=== PATIENT | female | born 2000 | race Caucasian/White ===

== ENCOUNTER 2024-04-21 13:22 | Outpatient (AMB) | payer MEDICARE, MEDICAID, SELFPAY ==
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
[2024-04-21 13:27] VITALS: BP 160/102; BMI 45.8
== END 2024-04-21 14:04 | disposition home or self-care (01) ==
PROVIDERS: PCP Family Medicine; Visit Provider Psychiatry & Neurology Neurology
DX: G25.69 Other tics of organic origin (principal); R06.83 Snoring; G47.10 Hypersomnia, unspecified
CPT/HCPCS: 99204; G2211

== ENCOUNTER → 2024-04-21 13:22 | Outpatient (BNVA) | payer MEDICAID, MEDICARE, SELFPAY | PROVIDERS: PCP Family Medicine; Visit Provider Psychiatry & Neurology Neurology | DX: G25.69 Other tics of organic origin (principal); G47.10 Hypersomnia, unspecified; R06.83 Snoring | CPT/HCPCS: 99202 ==

== ENCOUNTER 2024-05-07 19:24 | Outpatient (REF) | payer MEDICARE, MEDICAID, SELFPAY ==
--- NOTE | ~2024-05-07 | MR_ITS ---
EXAMINATION: MR CERVICAL SPINE WITHOUT IV CONTRAST History: M54.2 - Cervicalgia Technique: Sagittal T1, T2 and STIR, bilateral sagittal oblique T2, and axial T1, T2 and gradient echo images of the cervical spine were obtained per departmental protocol. Comparison: None available. Findings: The vertebral bodies maintain normal height and marrow signal intensity. There is straightening of the normal cervical lordosis. There is no subluxation. The intervertebral discs maintain normal height and hydration. At C2-3, there is no evidence of disc herniation, central spinal stenosis, or neural foraminal narrowing. At C3-4, there is no evidence of disc herniation, central spinal stenosis, or neural foraminal narrowing. At C4-5, there is no evidence of disc herniation, central spinal stenosis, or neural foraminal narrowing. At C5-6, there is no evidence of disc herniation, central spinal stenosis, or neural foraminal narrowing. At C6-7, there is no evidence of disc herniation, central spinal stenosis, or neural foraminal narrowing. At C7-T1, there is no evidence of disc herniation, central spinal stenosis, or neural foraminal narrowing. The spinal cord demonstrates normal signal intensity. The visualized paraspinal soft tissues are unremarkable. MR/MR cervical spine wo con Impression: Straightening of the normal cervical lordosis. Otherwise unremarkable MRI of the cervical spine. Electronically signed by: Fortino Agosto MD 05/09/2024 09:19 AM RANJAN
--- NOTE | ~2024-05-07 | MR_ITS ---
EXAMINATION: MR BRAIN WITHOUT IV CONTRAST HISTORY: G25.69 - Other tics of organic origin TECHNIQUE: Sagittal T1, and axial T1, FLAIR, T2, gradient echo, and diffusion weighted MR images of the brain were obtained. COMPARISON: None FINDINGS: The brain parenchyma is unremarkable, demonstrating normal deal/white differentiation. No foci of abnormal signal intensity are identified. The ventricular system is normal in size and configuration. There is no mass effect or midline shift. No intra or extra-axial fluid collections are identified. There are no foci of restricted diffusion. Normal vascular flow voids are noted in the basilar and carotid arteries. The visualized paranasal sinuses are clear. MR/MR head/brain wo con IMPRESSION: Unremarkable MRI of the brain without contrast. Electronically signed by: Fortino Agosto MD 05/09/2024 09:01 AM RANJAN
== END 2024-05-07 19:25 | disposition home or self-care (01) ==
LOC: HO.MRI 19:24
PROVIDERS: PCP Family Medicine; Visit Provider Psychiatry & Neurology Neurology
DX: M54.2 Cervicalgia (principal); G25.69 Other tics of organic origin
CPT/HCPCS: 70551; 72141

== ENCOUNTER → 2024-05-07 19:40 | Outpatient (BNV) | payer MEDICARE, MEDICAID, SELFPAY | PROVIDERS: PCP Family Medicine; Visit Provider Radiology Diagnostic Radiology | DX: M54.2 Cervicalgia (principal); R51.9 Headache, unspecified | CPT/HCPCS: 70551; 72141 ==

== ENCOUNTER → 2024-06-07 09:01 | Outpatient (REF) | payer MEDICARE, MEDICAID, SELFPAY | LOC: HO.SL 09:01 | PROVIDERS: PCP Family Medicine; Visit Provider Psychiatry & Neurology Neurology | DX: R06.83 Snoring (principal); G47.10 Hypersomnia, unspecified | CPT/HCPCS: 95806 ==

== ENCOUNTER → 2024-06-07 09:11 | Outpatient (BNV) | payer MEDICARE, MEDICAID, SELFPAY | PROVIDERS: PCP Family Medicine; Visit Provider Psychiatry & Neurology Neurology | DX: G47.33 Obstructive sleep apnea (adult) (pediatric) (principal) | CPT/HCPCS: 95806 ==

== ENCOUNTER 2024-08-02 08:01 | Outpatient (AMB) | payer MEDICARE, MEDICAID, SELFPAY ==
--- NOTE | 2024-08-02 08:09 | MHC.OFFVIS ---
Vital Signs 08/02/24 08:10 Height 5 ft 9 in Weight 305 lb BMI 45.0 BP 130/80 Blood Pressure Location Rt brachial Position Sitting Pulse 102 H Pulse Source Pulse Oximeter Pulse Oximetry (%) 96 Oxygen Delivery Method Room Air Intake Visit Reasons: follow up Tics Intake Note: Patient presents follow up Tics. MRI's/HST in chart. Accompanied by: Mother Allergies No Known Allergies Allergy (Verified 08/02/24 08:12) HPI Comments Details: 24y/o female comes for evaluation of sleep difficulties. HST completed 07/07/2024 significant for mild sleep apnea AHI was 5 and Oxygen Nadirs to 79%. She has h/o ADHD and PTSD, with anxiety and thinks these movements are related to emotional stress. she is accompanied by her mother who helps with the history. She was diagnosed with Christopher Danlos. She started having abnormal movements about 10 years ago, anxiety stress related. They worsened in 2020 during traumatic event, She describes the movements as TICS. She has motor TICS- head jerking she has neck pain and tightness Vocal TICS- squeaking noise.Verbal TICS- swears. She can suppress the movements transiently however unable to when in stressful situations such as testing or mom's health issues and falls, she tends to hyperfixate on how to remedy the situation. Seldomnly hits herself in her head. She discontinued Stratera due to HTN and it also increase the frequency of her movements, she sees Dr. Alford at [facility]. Since she started therapy on CPAP she says she is sleeping better remembers her dream. Denies headaches, she has photophobia and phonophobia with sensitivity to loud noises, can trigger vomiting. She had 2 episodes of ocular migraines and is concerned about abdominal migraines occurring occasionally. Stratera was discontinue due to htn, now she is on Aderrall, 10mg and she is back to her normal baseline of frequency with vocal and verbal tics having a couple per hour. She is attending [employer], has accomodations for her coursework. She notices sleep is better, since starting CPAP therapy, she is remembering her dreams, with improved hypersomnia, she no longer sleeps in to noon. Her diet is okay, food prep tends be challenging due to her IBS / IBD symptoms, she eats more bland foods, as he feels more constipation> than diarrhea symptoms. She trying to eat better, since starting adderall she feels better than when she was on antidepressants alone. She takes Crustin with Bromeline, magnesium, B12 and psylium husk for her gut health and is followed by and [facility] specialist. Food prep is challenging, plain bland foods, due to IBS she gets more constipation and diarrhea. Baclofen and tramadol as needed for pars defect goes to the gym and PT q 2 weeks, where she works with Yumi May at [employer]. She cleans her mask daily, changes her filters and hoses as needed and requests supplies from [facility], has the kathy on her phone to monitor her sleep episodes. [facility] Medical History Hypersomnia Snoring Tics of organic origin POTS (postural orthostatic tachycardia syndrome) Hereditary alpha tryptasemia PTSD (post-traumatic stress disorder) Polycystic bilateral ovaries Christopher-Danlos syndrome Depression ADHD Anxiety Family History Mother HTN (hypertension) Father Mental health problem Social History Alcohol intake: never Patient Tobacco Use Status: Never used Tobacco Physical Exam Vital Signs: Last Vital Signs Pulse 102 H 08/02/24 08:10 BP 130/80 08/02/24 08:10 Pulse Ox 96 08/02/24 08:10 Oxygen Delivery Method Room Air 08/02/24 08:10 BMI result Body Mass Index 45.0 Const General: cooperative, healthy appearing and comfortable Nutritional Appearance: obese Orientation/consciousness: patient oriented x3 Eyes Pupils: Equal, round and reactive pupils present Neuro Other: No TICS or any abnormal movements General: patient oriented x3, gait normal, tone normal, moves all extremities and no focal motor deficits Cranial nerves: Yes Facial sensation intact/muscles of mastication intact, Yes Equal, round and reactive pupils present, Yes Bilaterally intact EOM present, Yes Nystagmus not present, Yes Normal facial strength present and Yes Midline tongue present Cognition (Neuro): normal cognition Gait exam (Neuro): Normal gait present Motor exam (neuro): 5/5 motor strength present throughout and Normal motor muscle tone present throughout Deep tendon reflexes (DTR's): Right triceps reflex intensity grade: 2+, Left triceps reflex intensity grade: 2+, Rt Biceps (C5, C6): 2+, Left biceps reflex intensity grade: 2+, Right brachioradialis reflex intensity grade: 2+, Left brachioradialis reflex intensity grade: 2+, Right patellar reflex intensity grade: 3+ and Left patellar reflex intensity grade: 3+ Coordination: [id number] test normal Results Reviewed Results Reviewed: HST 07/07/2024 AHI was 5 and O2 Shahid to 79%, significant for mild sleep apnea. No data for compliance. Impression: Straightening of the normal cervical lordosis. Otherwise unremarkable MRI of the cervical spine. Apr 2024 IMPRESSION: Unremarkable MRI of the brain without contrast. Assessment & Plan Assessment & Plan (1) Tics of organic origin: Comment: motor and vocal likley undiagnosed Tourettes Code(s): G25.69 - Other tics of organic origin Category: Medical (2) Snoring: Code(s): R06.83 - Snoring Category: Medical (3) Hypersomnia: Code(s): G47.10 - Hypersomnia, unspecified Category: Medical (4) Excessive daytime sleepiness: Code(s): G47.19 - Other hypersomnia Category: Medical (5) Fatigue due to sleep pattern disturbance: Code(s): R53.83 - Other fatigue; G47.9 - Sleep disorder, unspecified Category: Medical (6) RUDY (obstructive sleep apnea): Code(s): G47.33 - Obstructive sleep apnea (adult) (pediatric) Category: Medical Plan HST 07/07/2024 AHI was 5 and O2 Shahid to 79%, significant for mild sleep apnea. Fatigue and excessive daytime sleepiness, she started using CPAP 2 weeks ago will continue to monitor therapy. Vocal TICS are better 2/hour now back to her baseline stopped Atomoxetine 40mg PO (stratera) d/t htn. Continue with Aderall 10mg daily as vocal tics are better managed per Dr. Abraham from [employer]. Reviewed MRI brain MRI C spine today with patient straightening of c-spine, otherwise normal MRI and C-spine. Anxiety and Depression improved with Buproprion 450mg PO QAM and Escitalopram 20 mg PO daily. Continue Magnesium 500mg PO at bedtime. Continue Visits with PT as directed and tolerated due to Christopher Danlos. Patient Instructions: Sleep Hygiene provided: set a scheduled bedtime and wake time to help regulate the circadian rhythm and balance the release of pituitary hormones. Sleep in a dark room, temperatures below 68 degrees, and no devices n bed. Limit caffeinated products 6 hours prior to bed, and limit fluids 2-4 hours prior to bed. Gentle night yoga, diffusing essential oils, and playing soft music can be relaxing. We discussed CBTI today to manage stress with strategies to help her with episode of mom's falls. We discussed diet, food, and exercise as tolerable. If she notices diarrhea or constipation IBS/IBD symptoms to adjust meds PRN. We also discussed continuation of Aderall 10mg PO daily as this has helped with Vocal tics. Coding Level of Care Code Est Pt Level 4 (60079) Complex EM visit Add On G2211 Diagnoses Tics of organic origin G25.69 Snoring R06.83 Hypersomnia G47.10 Excessive daytime sleepiness G47.19 Fatigue due to sleep pattern disturbance R53.83; G47.9 RUDY (obstructive sleep apnea) G47.33 Time Spent (min) 30
[2024-08-02 08:10] VITALS: BP 130/80; PULSE 102; O2SAT 96; BMI 45.0
== END 2024-08-02 08:57 | disposition home or self-care (01) ==
LOC: HO.HSMS 08:02
PROVIDERS: PCP Family Medicine; Visit Provider Physician Assistant Medical
DX: G25.69 Other tics of organic origin (principal); R06.83 Snoring; G47.10 Hypersomnia, unspecified; G47.19 Other hypersomnia; R53.83 Other fatigue; G47.9 Sleep disorder, unspecified; G47.33 Obstructive sleep apnea (adult) (pediatric)
CPT/HCPCS: 99214; G2211

== ENCOUNTER → 2024-08-02 08:01 | Outpatient (BNVA) | payer MEDICARE, SELFPAY | PROVIDERS: PCP Family Medicine; Visit Provider Physician Assistant Medical | DX: G25.69 Other tics of organic origin (principal); R06.83 Snoring; G47.10 Hypersomnia, unspecified; G47.19 Other hypersomnia; G47.9 Sleep disorder, unspecified; G47.33 Obstructive sleep apnea (adult) (pediatric); R53.83 Other fatigue | CPT/HCPCS: 99212 ==

== ENCOUNTER 2024-12-19 14:56 | Outpatient (AMB) | payer MEDICARE, MEDICAID, SELFPAY ==
--- NOTE | 2024-12-19 14:58 | A.OFFVIS_ITS ---
Vital Signs 12/19/24 14:59 Height 5 ft 9 in Weight 307 lb 8 oz BMI 45.4 BP 128/82 Blood Pressure Location Rt brachial Position Sitting Pulse 94 Pulse Source Pulse Oximeter Pulse Oximetry (%) 97 Oxygen Delivery Method Room Air Intake Visit Reasons: 3 month follow up Intake Note: Follow up Excessive daytime sleepiness and Hypersomnia last seen Shantanu Registered Nurse Required: No Accompanied by: Mother Allergies No Known Allergies Allergy (Verified 12/19/24 14:58) Medication List - Last Reconciled 12/19/24 by Yessy Chatman MD baclofen 5 mg PO TID PRN bupropion HCl XL 450 mg PO QAM clotrimazole-betamethasone 1-0.05 % appl topical dicyclomine 20 mg PO BID-TID epinephrine 0.3 mL IM ONCE PRN escitalopram oxalate 20 mg PO QAM famotidine 40 mg PO BID levocetirizine 10 mg PO BID norethindrone-e.estradiol-iron 1.5 mg-30 mcg ()/75 mg (7) ( FE 1.5/30 (28)) 1 tab PO DAILY omeprazole 20 mg PO QAM oxycodone 5 - 10 mg PO Q OTHER DAY pregabalin 100 mg PO BID HPI Comments Details: 24y/o female comes for F/u of abnormal movements.TICs are stable . Adderal helps with her attention and she thinks taking it regularly has helped her TICS. Her mood is stable .she also sees a panel machine setter for her back pain and sees a psychiatrist - for mood and ADHD treatment. she is using CPAP regularly . History from initial visit- 04/2024 she has h/o ADHD and PTSD, anxiety and thinks these movements are related to anxiety. she is accompanied by her mother who helps with the history. she started having abnormal movements about 10 years ago , anxiety stress related. They worsened in 2020 during traumatic event.she describes the movements as TICS. she has motor TICS- head jerking she has neck pain and tightness Vocal TICS- squeaking noise Verbal TICS- swears She can suppress the movements transiently Frequently hits herself in her head.SHe was started by atomoxetine for ADHD - increased dose has increased her abnormal movements and BP> she sees a provider at [facility] . 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 HST completed 07/07/2024 significant for mild sleep apnea AHI was 5 and Oxygen N adirs to 79%. [facility] Medical History Hypersomnia Snoring Tics of organic origin POTS (postural orthostatic tachycardia syndrome) Hereditary alpha tryptasemia PTSD (post-traumatic stress disorder) Polycystic bilateral ovaries Christopher-Danlos syndrome Depression ADHD Anxiety Family History Mother HTN (hypertension) Father Mental health problem Social History Alcohol intake: never Patient Tobacco Use Status: Never used Tobacco Physical Exam Vital Signs: Last Vital Signs Pulse 94 12/19/24 14:59 BP 128/82 12/19/24 14:59 Pulse Ox 97 12/19/24 14:59 Oxygen Delivery Method Room Air 12/19/24 14:59 BMI result Body Mass Index 45.4 Const General: cooperative, healthy appearing and comfortable Nutritional Appearance: obese Orientation/consciousness: patient oriented x3 Eyes Pupils: Equal, round and reactive pupils present Neuro Other: No TICS or any abnormal movements General: patient oriented x3, gait normal, tone normal, moves all extremities and no focal motor deficits Cranial nerves: Yes Facial sensation intact/muscles of mastication intact, Yes Equal, round and reactive pupils present, Yes Bilaterally intact EOM present, Yes Nystagmus not present, Yes Normal facial strength present and Yes Midline tongue present Cognition (Neuro): normal cognition Gait exam (Neuro): Normal gait present Motor exam (neuro): 5/5 motor strength present throughout and Normal motor muscle tone present throughout Coordination: [id number] test normal Assessment & Plan Assessment & Plan (1) Tics of organic origin: Comment: motor and vocal likley undiagnosed Tourettes Code(s): G25.69 - Other tics of organic origin Category: Medical (2) RUDY (obstructive sleep apnea): Code(s): G47.33 - Obstructive sleep apnea (adult) (pediatric) Category: Medical Plan HST 07/07/2024 AHI was 5 and O2 Shahid to 79%, significant for mild sleep apnea. Vocal TICS are better 2/hour now back to her baseline Continue with Aderall 10mg daily as vocal tics are better managed per [facility] from [employer] [facility].. Anxiety and Depression improved with Buproprion 450mg PO QAM and Escitalopram 20 mg PO daily. Continue Magnesium 500mg PO at bedtime. Continue exercises Christopher Danlos. Lumbar disc disease- sees panel machine setter Medications: New dextroamphetamine-amphetamine 10 mg ER (Adderall XR) 10 mg PO DAILY 0RF Coding Level of Care Code Est Pt Level 4 (45385) Complex EM visit Add On G2211 Diagnoses Tics of organic origin G25.69 RUDY (obstructive sleep apnea) G47.33
[2024-12-19 14:59] VITALS: BP 128/82; PULSE 94; O2SAT 97; BMI 45.4
--- OUTSIDE RECORDS SUMMARY | 2024-12-19 18:12 | XMS_ITS | Clinical Summary ---
Author Organization [facility] Address [address] [place] [phone] Phone Care Team Providers Care Packer Insulation Name Role Phone Melony Pinto MD Primary Care Provider Allergies Active Allergy Reactions Criticality Noted Date Comments Allergen Wow-Lefvp-Qwejm Bee Anaphylaxis High 2020 Medications escitalopram oxalate (LEXAPRO) 20 MG tablet Take 20 mg by mouth daily. Active EPINEPHrine 0.3 mg/0.3 mL auto-injector Inject 0.3 mL (0.3 mg total) into the muscle as needed for anaphylaxis. 1 Device 1 Active dicyclomine (BENTYL) 20 mg tablet Take 20 mg by mouth 3 (three) times a day as needed. 2 Active PROAIR HFA 90 mcg/actuation inhaler Inhale 2 puffs into the lungs every 4 (four) hours. 2 Active famotidine (PEPCID) 40 MG tablet Take 40 mg by mouth nightly at bedtime. 2 Active buPROPion (FORFIVO XL) 450 mg Tb24 ER 24 hr tablet Take 450 mg by mouth every morning. 4 Active clotrimazole-be tamethasone (LOTRISONE) cream APPLY TOPICALLY TO THE AFFECTED AND SURROUNDING AREAS TWICE DAILY IN THE MORNING AND IN THE EVENING FOR 2 WEEKS 4 Active cromolyn (GASTROCROM) 100 mg/5 mL solution Take 100 mg by mouth. 4 Active guanFACINE (INTUNIV) 1 mg Tb24 Take 2 mg by mouth nightly at bedtime. 4 Active guanFACINE (TENEX) 1 MG tablet Take 1 mg by mouth nightly at bedtime. 4 Active traMADoL (ULTRAM) 50 mg tablet Take 50 mg by mouth 2 (two) times a day. 4 Active pregabalin (LYRICA) 100 MG capsule Take 100 mg by mouth 2 (two) times a day. 4 Active omeprazole (PRILOSEC) 20 MG capsule Take 20 mg by mouth daily. 4 Active levocetirizine (XYZAL) 5 MG tablet Take 5 mg by mouth every evening. 4 Active LORazepam (ATIVAN) 1 MG tabletIndicatio ns:Anxiety due to invasive procedure Take 1 tablet (1 mg total) by mouth once for 1 dose. Take one hour before appointment 1 tablet 4 Active oxyCODONE 5 MG immediate release tablet 4 Active JUNEL FE 1.5/30, 28, 1.5 mg-30 mcg (21)/75 mg (7) tabletIndicatio ns:Oligomenorrh ea TAKE 1 TABLET BY MOUTH DAILY 84 tablet 4 5 Active Active Problems Problem Noted Date Diagnosed Date Primary oligomenorrhea 07/02/2021 Overview (12/10/2023): PCP diagnosed with PCOS but LH/FSH normal and drawn while on OCPs. Normal testosterone. Elevated insulin. Reports having US at [facility]. Assessment & Plan (07/02/2021 9:20 AM EDT): Will change OCP to a same daily dose pill that is 30 mcg as with her elevated transamninases and obesity, a 20 mcg pill is likely not adequate Concussion with loss of consciousness 06/23/2016 Encounters Date Type Department Care Team Description 09/26/2024 Refill [facility] [address] [place] [address] [place] [address] Yvrose Macdonald MD Medication Refill from Last 3 Months Immunizations Immunization Administration Dates Next Due COVID-19 (Pre-02/02) Moderna Vaccine, mRNA, PF 06/07/2020 DTP 07/02/2004, 1,1999,10/16,1999 Hepatitis B, unspecified formulation 06/23/2000, 01/24/2000,1999 Hib, unspecified formulation 09/17/2000, 1999,1999,08/18 Influenza Quadrivalent Prese rvative Free IM 03/02/2023,01/06/2022,01/14/2021,03/01 MMR 07/02/2004,09/17/2000 Meningococcal MCV4P 08/18/2016 Polio, Unspecified Formulation 5,12/17/2000,1999,08/18 Tdap 07/08/2021,07/28/2011 Varicella 07/28/2011,07/10/2003 Family History Medical History Relation Comments No Known Problems Father Hypertension Mother Relation Status Comments Father Alive Mother Alive Social History Tobacco Use Types Packs/Day Years Used Date Smoking Tobacco: Former Cigarettes Q uit: 06/2021 Smokeless Tobacco: Never Tobacco Cessation:Counseling Given: Not Answered Comments:vapes currently Alcohol Use Standard Drinks/Week Comments Yes 2 (1 standard drink = 0.6 oz pur e alcohol) socially Education Answer Date Recorded Are you interested in more education? Not on laura e 08/08/2022 Are you concerned about learning? Not on file 08/08/2022 No 08/08/2022 No 08/08/2022 Digital Access Answer Date Recorded No 09/03/2022 No 09/03/2022 Reliable internet access at home? Not on file 09/03/2022 Device with a working camera? Not on file Comments No Sex and Gender Information Value Date Recorded Sex Assigned at Female 09/27/2020 5:05 PM EDT Legal Sex Female 8:47 PM EDT Gender Identity Female 09/27/2020 5:05 PM EDT Sexual Orientation Not on file Last Filed Vital Signs Vital Sign Reading Time Taken Comments Blood Pressure 122/78 12/10/2023 1:27 PM EDT Pulse 75 01/29/2022 11:17 AM EDT Temperature 36 C (96.8 F) 01/29/2022 11:17 AM EDT Respiratory Rate 18 01/29/2022 11:34 AM EDT Oxygen Saturation 98% 01/29/2022 10:15 AM EDT Inhaled Oxygen Concentration - - Weight 142.9 kg (315 lb) 12/10/2023 1:27 PM EDT Height 177.8 cm (5' 10 ) 12/10/2023 1:27 PM EDT Body Mass Index 45.2 12/10/2023 1:27 PM EDT Plan of Treatment Health Maintenance Due Date Last Done Comments DEPRESSION SCREENING 2011 SMOKING Hx and SMOKELESS TOBACCO SCREENING 06/16/2012 HPV VACCINES (1 - 3-dose series) 06/16/2014 HEPATITIS C SCREENING 06/16/2017 HIV ONE-TIME SCREENING (18-65 YEARS) 06/16/2017 INFLUENZA VACCINE (#1) 2024 , 01/06/2022, 01/14/2021, Additional history exists COVID-19 VACCINE ( season) 2024 03/15/2021, 06/07/2020, 05/10/2020 PAP SMEAR 12/09/2026 12/10/2023, 10/23/2020 Adult Td,Tdap Booster 07/09/2031 07/08/2021, 012 HIB VACCINES Completed 09/17/2000, 12/12, 1999, Additional history exists MENINGOCOCCAL VACCINES (ACWY) Completed 08/18/2016 HEPATITIS A VACCINES Aged Out No long er eligible based on patient's age to complete this topic MENINGOCOCCAL VACCINES (B) Aged Out N o longer eligible based on patient's age to complete this topic PNEUMOCOCCAL VACCINES (0-49 years) Aged Out No longer eligible based on patient's age to complete this topic Medical Devices Not on file Procedures Procedure Name Priority Date/Time Associated Diagnosis Comments PAP TEST Routine 12/10/2023 12:00 AM EDT from Last 3 Months or Most Recently Relevant to Health Maintenance Results * Pap Test (12/10/2023 12:00 AM EDT) 12/10/2023 12/11/2023 9:3 4 AM EDT Narrative SEE NARRATIVE - 12/18/2023 8:55 AM EDT [address] [address] Instructional Aide: Serena Kimble MD MANAGER CT Cytology Report FINAL DIAGNOSIS A. PAP SMEAR (THIN PREP) CE: SPECIMEN ADEQUACY: Satisfactory for evaluation; transformation zone absent/insufficient. INTERPRETATION: NEGATIVE FOR INTRAEPITHELIAL LESION OR MALIGNANCY. This specimen was analyzed by the automated ThinPrep Imaging System ([employer].) and the selected cerrato were reviewed by a cytology manager. Electronically Signed Out By: VIKI Menchaca(ASCP) The Pap test is a screening test primarily for squamous cancers and precursors and has associated false-negative and false-positive results. New technologies such as liquid-based preparations may decrease but will not eliminate all false-negative results. Regular sampling and follow-up of unexplained clinical signs and symptoms are recommended to minimize false negative results. CLINICAL HISTORY Date of Last Menstrual Period: Not Provided Menstrual History: Unknown Contraceptive History: BCPs Other Clinical Conditions: Screening Pap SPECIMEN SOURCE A: PAP SMEAR (THIN PREP) CE Patient Name: SHANERICARDOISAÍAS Betts : 2000 (Age: 23) Sex: F Institution: [facility] Location: [facility] Date of Collection: 12/10/2023 Date of Reported: 12/18/2023 08:55 Results to: Jeremias Boggs MD Jeremias Boggs MD CYTOLOGY ORDERABLES Final Result SEE NARRATIVE from Last 3 Months or Most Recently Relevant to Health Maintenance [facility] B [facility] MED[facility] PART A & B [place] & B Member Subscriber Plan / Payer (Ef fective 2023-) Name:Isaías Weaver Member ID:[id number] Relation to Subscriber:Self Name:Isaías Weaver Subscriber ID:[id number] Payer ID:[id number] Group ID:Not on file Type:Medicare Address: [facility] [address] [place] Care Teams Packer Insulation Relationship Specialty Start Date End Date Pinto, Melony C, MD [email or web address] PCP - General Family Medicine 09/27/20 Additional Source Comments The information contained in this document represents components of the legal health record. It is not the complete legal health record.[facility]
--- OUTSIDE RECORDS SUMMARY | 2024-12-19 18:12 | XMS_ITS | Encounter Summary ---
Author Organization [facility] Address [address] [place] [phone] Phone Care Team Providers Care Geothermal Operating Engineer Name Role Phone Melony Pinto MD Primary Care Provider [phone] Melony Pinto MD Unavailable [phone] Mira Isaac [facility] Unavailable [email or web address] Encounter Details Date Type Department Care Team (Latest Contact Info) Description 03/03/2022 Transcribe Orders [facility] Laboratory [address] [id number] Desi Montano NP [address] [place] [id number] [email or web address] Abnormal bowel habits (Primary Dx); Abdominal pain, epigastric; Lower abdominal pain Social History Tobacco Use Types Packs/Day Years Used Date Smoking Tobacco: Former Cigarettes Q uit: 06/2021 Smokeless Tobacco: Former Comments:vapes currently Alcohol Use Standard Drinks/Week Comments Yes 2 (1 standard drink = 0.6 oz pur e alcohol) Comments No Sex and Gender Information Value Date Recorded Sex Assigned at Female 09/27/2020 5:05 PM EDT Legal Sex Female 8:47 PM EDT Gender Identity Female 09/27/2020 5:05 PM EDT Sexual Orientation Not on file documented as of this encounter Plan of Treatment Not on file documented as of this encounter Results * TSH (03/03/2022 9:14 AM EST) TSH 3.10 0.27 - 4.20 uIU/mL [facility] Blood 03/03/2022 9:14 AM EST 03/03/2022 9:21 AM EST Desi Fauzia Dusty [facility] LAB BLOOD ORDERABLES Final Result Performing Organization Address City/[facility]/ZIP Co de Phone Number [address] [address] * Lipase (03/03/2022 9:14 AM EST) Pathologist [facility] LIPASE 58 16 - 63 U/L [facility] Blood 03/03/2022 9:14 AM EST 03/03/2022 9:21 AM EST Desi Fauzia Dusty [facility] BLOOD ORDERABLES Final Result Performing Organization Address [facility] Co de Phone Number [address] [address] * (ABNORMAL) C-Reactive Protein (03/03/2022 9:14 AM EST) Pathologist [facility] C REACTIVE PROTEIN 4.9(H) 0.0 - 4.0 mg/L [facility] Blood 03/03/2022 9:14 AM EST 03/03/2022 9:21 AM EST Desi Cage Dusty [facility] BLOOD ORDERABLES Final Result Performing Organization Address City/[facility]/ZIP Co de Phone Number [address] [address] * Comprehensive metabolic panel (03/03/2022 9:14 AM EST) Pathologist [facility] SODIUM 138 133 - 146 mmol/L [facility] POTASSIUM 4.1 3.3 - 5.1 mmol/L [facility] CHLORIDE 102 96 - 108 mmol/L [facility] CO2 24 21 - 35 mmol/L [facility] BUN 15 6 - 19 mg/dL [facility] CREATININE 0.80 0.5 - 1.5 mg/dL [facility] GLUCOSE 98 70 - 99 mg/dL [facility] ALBUMIN 4.4 3.9 - 4.8 g/dL [facility] TOTAL PROTEIN 7.2 6.5 - 8.0 g/dL [facility] CALCIUM 9.8 8.4 - 10.3 mg/dL [facility] ALKALINE PHOSPHATASE 75 39 - 117 U/L [facility] TOTAL BILIRUBIN 0.2 0.0 - 1.2 mg/dL [facility] AST 19 0 - 37 U/L [facility] ALT 29 0 - 40 U/L [facility] GLOBULIN 2.8 1 - 4.8 g/dL [facility] EGFR 107 >59 mL/min/1.7 3m2 [facility] Comment:Estimated glomerular filtration rate calculated using the CKD-EPI refit equation. ANION GAP 16 10 - 20 mmol/L [facility] Blood 03/03/2022 9:14 AM EST 03/03/2022 9:21 AM EST us Desi Montano [facility] LAB BLOOD ORDERABLES Final Result Performing Organization Address City/State/[facility] Co de Phone Number [address] [address] * (ABNORMAL) CBC and differential (03/03/2022 9:14 AM EST) WBC 11.74(H) 4.00 - 11.00 K/uL [facility] RBC 4.51 3.72 - 5.30 M/uL [facility] HGB 13.9 11.0 - 15.2 g/dL [facility] HCT 40.0 31.6 - 44.1 % [facility] PLT 323 140 - 430 K/uL [facility] MCV 88.7 78.0 - 97.0 fL [facility] MCH 30.8 25.0 - 33.0 pg [facility] MCHC 34.8 32.0 - 36.0 g/dL [facility] RDW 12.1 11.0 - 16.0 % [facility] MPV 10.2 8.4 - 12.8 fl [facility] DIFF METHOD Auto [facility] NEUTS 58.6 43.0 - 75.0 % [facility] LYMPHS 31.8 18.2 - 47.4 % [facility] MONOS 6.9 4.00 - 11.00 % [facility] EOS 1.8 0.0 - 8.0 % [facility] BASOS 0.7 0.0 - 2.0 % [facility] Granulocytes, immature (%) 0.2 0.0 - 0.9 % [facility] ABSOLUTE NEUTS 6.89 1.80 - 7.70 K/uL [facility] ABSOLUTE LYMPHS 3.73(H) 1.00 - 3.10 K/uL [facility] ABSOLUTE MONOS 0.81(H) 0.20 - 0.80 K/uL [facility] ABSOLUTE EOS 0.21 0.00 - 0.80 K/uL [facility] ABSOLUTE BASOS 0.08 0.00 - 0.09 K/uL [facility] Granulocytes, immature 0.02 0.00 - 0.05 K/uL [facility] Blood 03/03/2022 9:14 AM EST 03/03/2022 9:21 AM EST Desi Montano NP LAB BLOOD ORDERABLES Final Result [address] [address] * Immunoglobulin A (03/03/2022 9:14 AM EST) IgA 157 70 - 400 mg/dL [facility] Blood 03/03/2022 9:14 AM EST 03/03/2022 9:21 AM EST Desi Montano [facility] LAB BLOOD ORDERABLES Final Result [address] [address] * Tissue transglutaminase IgA (03/03/2022 9:14 AM EST) TTG IGA ANTIBODY <1.2 <4.0 (Negative) U/mL [facility] Blood 03/03/2022 9:14 AM EST 03/03/2022 9:20 AM EST us Desi Montano [facility] LAB BLOOD ORDERABLES Final Result [facility] [address] [place] [address] documented in this encounter Visit Diagnoses Diagnosis Abnormal bowel habits- Primary Abdominal pain, epigastric Lower abdominal pain Abdominal pain, other specified site documented in this encounter Care Teams Geothermal Operating Engineer Relationship Specialty Start Date End Date Melony Pinto MD PCP - General Family Medicine 09/27/20 Melony Pinto MD [address] [place] [phone] Insurance Assigned Provider 09/21/21 12/20/22 Mira Isaac, INSPECTOR OPEN DIE [address] [place] [address] [email or web address] Social Work 09/02/22 09/30/22 documented as of this encounter Additional Source Comments The information contained in this document represents components of the legal health record. It is not the complete legal health record.[facility]
--- OUTSIDE RECORDS SUMMARY | 2024-12-19 18:12 | XMS_ITS | Clinical Summary ---
Author Organization [facility] Address [address] [place] [address] Care Team Providers Care Cistern Room Operator Name Role Phone Derrick He MD Primary Care Provider [phone] Allergies Active Allergy Reactions Criticality Noted Date Comments Allergen Aob-Opmru-Emqpu Bee Angioedema High 021 Medications dicyclomine (BENTYL) 20 mg tablet Take 20 mg by mouth 3 times a day. 5 Active EPINEPHrine (EPIPEN) 0.3 mg/0.3 mL injection syringe Inject 0.3 mg into the outer thigh muscle as directed as needed. 5 Active escitalopram (LEXAPRO) 20 mg tablet Take 20 mg by mouth once a day. 5 Active famotidine (PEPCID) 40 mg tablet Take 20 mg by mouth 2 times a day. 5 Active levocetirizine (XYZAL) 5 mg tablet Take 5 mg by mouth 3 times a day. 5 Active methocarbamoL (ROBAXIN) 500 mg tablet Take 500 mg by mouth 3 times a day as needed. 5 Active Junel FE 1.5/30, 28, 1.5 mg-30 mcg (21)/75 mg (7) per tablet Take 1 tablet by mouth once a day. 5 Active omeprazole (PriLOSEC) 20 mg capsule Take 20 mg by mouth once a day. 5 Active oxyCODONE IR (ROXICODONE) 5 mg tablet Take 5 mg by mouth 3 times a day. 5 Active traMADoL (ULTRAM) 50 mg tablet Take 50 mg by mouth every 8 hours as needed. 5 Active pregabalin (LYRICA) 100 mg capsule Take 100 mg by mouth every 12 hours. 5 Active dextroamphetami ne-amphetamine XR (ADDERALL XR) 5 mg capsule Take 5 mg by mouth every morning. 5 Active Adderall XR 10 mg capsule Take 10 mg by mouth every morning. 5 Active clotrimazole-be tamethasone (LOTRISONE) cream Apply topically to the affected area 2 times a day. 4 Active buPROPion XL (FORFIVO XL) 450 mg 24 hr tablet Take 450 mg by mouth once a day. 5 Active baclofen (LIORESAL) 5 mg tablet Take 5 mg by mouth 3 times a day. 5 Active albuterol (PROAIR HFA,VENTOLIN HFA) 90 mcg inhaler Inhale 2 puffs by mouth every 6 hours as needed. 5 Active Active Problems Problem Noted Date Diagnosed Date Concussion 06/23/2016 Social History Tobacco Use Types Packs/Day Years Used Date Smoking Tobacco: Never Assessed Comments Unknown Sex and Gender Information Value Date Recorded Sex Assigned at Female 09/07/2024 9:04 AM EDT Legal Sex Female 7:21 PM EDT Gender Identity Female 09/06/2024 2:38 PM EDT Sexual Orientation Other 09/06/2024 2: 38 PM EDT Last Filed Vital Signs Vital Sign Reading Time Taken Comments Blood Pressure 124/87 09/07/2024 9:17 AM EDT Pulse 124 09/07/2024 9:17 AM EDT pt states 'i was rushing top get here' aware Temperature - - Respiratory Rate 20 09/07/2024 9:17 AM EDT Oxygen Saturation 95% 09/07/2024 9:1 7 AM EDT Inhaled Oxygen Concentration - - Weight 139.3 kg (307 lb) 09/07/2024 9:1 7 AM EDT Height 173.3 cm (5' 8.23 ) 06/23/2016 3 :54 PM EDT Body Mass Index - - Plan of Treatment Upcoming Encounters Date Type Department Care Team (Late st Contact Info) Description 02/17/2025 12:30 PM EST Follow-Up [facility] [address] [place] [phone] Monorail Hooker: Natalia Loya MD [address] [place] [phone] Health Maintenance Due Date Last Done Comments HIV Screening 1999 Hepatitis C Screening 1999 Pap Smear 1999 Medicare AWV 06/16/2000 HPV Vaccines (1 - 3-dose series) 06/16/2014 Alcohol/Substance Use Screening 04/13/2024 Depression Screening and Follow-Up 04/13/2024 Social Drivers of Health Annual Screening 04/13/2024 COVID-19 Vaccine (2024- season) 2024 03/15/2021, 06/07/2020, 05/10/2020 Influenza Vaccine (#1) 2024 , 03/02/2023, 01/14/2021, Additional history exists DTaP,Tdap,and Td Vaccines (8 - Td or Tdap) 07/09/2031 07/08/2021, 07/28/2011, 07/02/2004, Additional history exists RSV Vaccine (60+ years old and patients) (1 - 1-dose 75+ series) 06/16/2074 Hepatitis B Vaccines Completed 06/23/2000, 01/24/2000, 1999 Varicella Vaccines Completed 07/28/2011, 07/10/2003 Pneumococcal Vaccine: Pediatric (0-5 Years) and At-Risk Patients (6-50 Years) Aged Out No longer eligible based on patient's age to complete this topic Insurance MEDICARE [facility] Care Teams Cistern Room Operator Relationship Specialty Start Date End Date Derrick He MD PCP - General 10/30/16
--- OUTSIDE RECORDS SUMMARY | 2024-12-19 18:12 | XMS_ITS | Encounter Summary ---
Author Organization [facility] Address [address] [place] [phone] Phone Care Team Providers Care Dry Starch Supervisor Name Role Phone Melony Pinto MD Primary Care Provider [phone] Melony Pinto MD Unavailable [phone] Mira Isaac [facility] Unavailable [email or web address] Reason for Referral * Outpatient Procedure - Closed Specialty Diagnoses / Procedures Referred By Contac t Referred To Contact Diagnoses Christopher-Danlos syndrome, benign hypermobile form Procedures Adult Echo TTE Eboni May DO Phone: tel: fax: mailto: Referral ID Status Reason Start Date Expiration Date Visits Re quested Visits Authorized [id number] Closed 12/05/2021 12/05/2022 1 1 Encounter Details Date Type Department Care Team (Latest Contact Info) Description 10/10/2021 Transcribe Orders Virtual Department [address] [place] [address] Eboni May DO [address] [place], [place] [id number] [email or web address] Christopher-Danlos syndrome, benign hypermobile form (Primary Dx) Social History Tobacco Use Types Packs/Day Years Used Date Smoking Tobacco: Former Cigarettes Q uit: 06/2021 Smokeless Tobacco: Former Alcohol Use Standard Drinks/Week Comments Yes 0 (1 standard drink = 0.6 oz pur e alcohol) twice weekly 2-3 drinks Comments No Sex and Gender Information Value Date Recorded Sex Assigned at Female 09/27/2020 5:05 PM EDT Legal Sex Female 8:47 PM EDT Gender Identity Female 09/27/2020 5:05 PM EDT Sexual Orientation Not on file documented as of this encounter Plan of Treatment Not on file documented as of this encounter Results * TTE COMPREHENSIVE (01/14/2022 1:17 PM EDT) Body Surface Area 2.41 m2 Height 178 cm Weight 127 kg Systolic BP 124 mmHg Diastolic BP 76 mmHg Left Atrium Dimension Anterior-Posterior 36 15 - 40 mm Aortic Valve Mean Gradient 2 mmHg Aortic Valve Time Velocity Integral 186 mm Aortic Valve Peak Velocity 102.0 cm/s Aortic Valve Peak Gradient 4 mmHg Aortic Sinus Diameter 31 mm Ascending Aorta Diameter 30 mm Inferior Vena Cava Diameter 19 0.0 - 21 mm Interventricular Septum Thickness 8 mm Left Ventricle Internal Diameter End Diastole 52 37 - 52 mm Left Ventricle Internal Diameter End Systole 32 22 - 35 mm Left Ventricular Outflow Tract Diameter 23.0 mm LVOT VTI REST 155 mm Left Ventricular Outflow Tract Velocity 0.9 m/s Left Ventricular Outflow Tract Gradient at Rest 3 mmHg Left Ventricular Posterior Wall Thickness 9 mm Ejection Fraction 69 50 - 75 Percent Mitral Valve Deceleration Time 291 ms Mitral Valve A Wave Speed 54.0 cm/s Mitral Valve E Wave Speed 89.1 cm/s Right Ventricle Basal Diameter 50.1 25 - 41 mm Tricuspid Valve Peak Velocity 1.9 m/s Raw LV EF% 62 % Left Atrial Volume 36 mL Left Atrial Volume Index 14.94 mL/m2 Right Ventricle Peak Systolic Pressure 17 mmHg Right Ventricle TAPSE 23 mm Right Atrium Pressure Estimated 3 mmHg Right Ventricle to Right Atrium Pressure Gradient 14 mmHg Right Ventricle Pulse Doppler S Wave 12.9 cm/s Aortic Valve Sinus Index 1 13 19 - 27 mm Ascending Aorta Diameter 12 mm Aortic Sinus Index 13 mm Ascending Aorta Index 12 mm Anatomical Region Laterality Modality Heart Ultrasound Narrative 01/15/2022 7:35 AM EDT This patient was imaged during normal sinus rhythm. The estimated ejection fraction 65% with no regional wall motion and normalities. The left atrium is normal in size there is no evidence of aortic stenosis there is trace to mild mitral regurgitation there is no pericardial effusion and no prior echo available for comparison. The aortic sinuses measure normally at 31 mm Left Ventricle The left ventricular cavity size and wall thickness are normal. Left ventricular systolic function is normal. There are no segmental left ventricular wall motion abnormalities noted. The estimated ejection fraction is 69% (Normal 50-75%). The left ventricular ejection fraction was measured by visual estimate. There is no evidence of left ventricular thrombus. Right Ventricle The right ventricular cavity is dilated. Left Atrium The left atrium is normal in size. The left atrial anterior-posterior dimension measures 36 mm (normal 15-40 mm). Right Atrium The right atrium is dilated. Normal pulmonary pressure. The IVC is normal in size (2.1cm or less). The IVC demonstrates normal collapse with inspiration which is consistent with normal RA pressure. Mitral Valve E/A ratio is 1.7. E/E' avg is 6.6. Lat E' velocity is 13.6 cm/s. Med E' velocity is 13.6 cm/s. There is no evidence of mitral stenosis. There is no evidence of mitral valve prolapse. There is trace to mild mitral regurgitation detected by spectral and color Doppler. Tricuspid Valve There is no evidence of tricuspid stenosis. There is evidence of trace to mild tricuspid regurgitation by color and spectral Doppler. The RV systolic pressure was estimated from the peak TV regurgitant velocity. The estimated RV systolic pressure is 17 mmHg assuming a right atrial pressure of 3 mmHg. The calculated peak RV-RA pressure gradient is 14 mmHg. Aortic Valve There is no evidence of valvular aortic stenosis. There is no evidence of aortic regurgitation by color and spectral Doppler. The visualized portions of the thoracic aorta appear normal. Pulmonic Valve There is no evidence of pulmonic stenosis. There is evidence of trace pulmonary regurgitation by color and spectral Doppler. Pericardium There is no evidence of pericardial effusion. Interatrial Septum The interatrial septum appears normal. General Findings The image quality was fair (3). Technique(s) used in the evaluation: Color flow Doppler and Spectral Doppler. The predominant rhythm during the study was sinus. Comparison Findings No prior studies for comparison. Eboni May DO CV ECHO ORDERABLES Final Res ult documented in this encounter Visit Diagnoses Diagnosis Christopher-Danlos syndrome, benign hypermobile form- Primary Christopher-Danlos syndrome Christopher-Danlos syndrome, benign hypermobile form Christopher-Danlos syndrome documented in this encounter Care Teams Dry Starch Supervisor Relationship Specialty Start Date End Date Melony Pinto MD [email or web address] PCP - General Family Medicine 09/27/20 Melony Pinto MD [address] [place] [address] [email or web address] Insurance Assigned Provider 09/21/21 12/20/22 Mira Isaac, [facility] [address] [place] [address] [email or web address] Social Work 09/02/22 09/30/22 documented as of this encounter Additional Source Comments The information contained in this document represents components of the legal health record. It is not the complete legal health record.[facility]
--- OUTSIDE RECORDS SUMMARY | 2024-12-19 18:12 | XMS_ITS | Encounter Summary ---
Author Organization [facility] Address [address] [place] [address] Phone Care Team Providers Care Corporate Relations Director Name Role Phone Melony Pinto MD Primary Care Provider [phone] Melony Pinto MD Unavailable [phone] Mira Isaac [employer] Unavailable [email or web address] Encounter Details Date Type Department Care Team (Late st Contact Info) Description 01/29/2022 Procedure Pass [facility] Endoscopy Admitting Dept Virtual Department [address] [place] [id number] Social History Tobacco Use Types Packs/Day Years [...] on file documented as of this encounter Visit Diagnoses Not on filedocumented in this encounter Care Teams Corporate Relations Director Relationship Specialty Start Date End Date Melony Pinto MD PCP - General Family Medicine 09/27/20 Melony Pinto MD [address] [place] [address] [email or web address] Insurance Assigned Provider 09/21/21 12/20/22 Mira Isaac, [address] [address] [email or web address] [email or web address] Social Work 09/02/22 09/30/22 documented as of this encounter Additional Source Comments The information contained in this document represents components of the legal health record. It is not the complete legal health record.[facility]
--- OUTSIDE RECORDS SUMMARY | 2024-12-19 18:12 | XMS_ITS | Encounter Summary ---
Author Organization [facility] Address [address] [place] [address] Phone Care Team Providers Care Chief Lending Officer Name Role Phone Melony Pinto MD Primary Care Provider [phone] Melony Pinto MD Unavailable [phone] Mira Isaac [employer] Unavailable [email or web address] Encounter Details Date Type Department Care Team (Late st Contact Info) Description 10/10/2021 Procedure Pass [facility] [address] [place] [address] Social History Tobacco Use Types Packs/Day Years [...] on filedocumented in this encounter Care Teams Chief Lending Officer Relationship Specialty Start Date End Date Melony Pinto MD PCP - General Family Medicine 09/27/20 Melony Pinto MD [address] [place] [address] [email or web address] Insurance Assigned Provider 09/21/21 12/20/22 Mira Isaac, [address] [address] [email or web address] Work 09/02/22 09/30/22 documented as of this encounter Additional Source Comments The information contained in this document represents components of the legal health record. It is not the complete legal health record.[facility]
== END 2024-12-19 15:55 | disposition home or self-care (01) ==
LOC: HO.HSMS 14:57
PROVIDERS: PCP Family Medicine; Visit Provider Psychiatry & Neurology Neurology
DX: G25.69 Other tics of organic origin (principal); G47.33 Obstructive sleep apnea (adult) (pediatric)
CPT/HCPCS: 99214; G2211

== ENCOUNTER → 2024-12-19 14:56 | Outpatient (BNVA) | payer OTHER, SELFPAY | PROVIDERS: PCP Family Medicine; Visit Provider Psychiatry & Neurology Neurology | DX: G47.10 Hypersomnia, unspecified (principal); G47.33 Obstructive sleep apnea (adult) (pediatric); G25.69 Other tics of organic origin; M54.2 Cervicalgia; R06.83 Snoring | CPT/HCPCS: 99212 ==

== ENCOUNTER 2025-03-30 08:55 | Outpatient (AMB) | payer MEDICARE, MEDICAID, SELFPAY ==
[2025-03-30 08:56] VITALS: BMI 44.3
--- NOTE | 2025-03-30 08:56 | A.PHYSOV_ITS ---
Vital Signs 03/30/25 08:56 Height 5 ft 9 in Weight 300 lb BMI 44.3 Intake Visit Reasons: LBP & hip pain Intake Note: Patient is a 24 year old female in office today for low back pain. Allergies No Known Allergies Allergy (Verified 12/19/24 14:58) HPI Comments Details: History of Present Illness The patient is a 24 year old female presenting with a follow-up visit for chronic lower back pain of over 10 years duration. She has a known diagnosis of Christopher-Danlos syndrome and is disabled. She reports recent pain radiating to her left buttock, though she has experienced bilateral radicular symptoms in the past. Her pain management has included intermittent and interchangeable use of oxycodone and tramadol, though it was recommended her primary care provider prescribe only one opioid. Her current regimen includes pregabalin 100 mg twice daily, baclofen 5 mg, magnesium supplements, and oxycodone 5 mg four times a day, with tramadol discontinued. A lumbar sacral spine MRI from September 15, 2024, demonstrated an extrusion and cranial migration of an L5-S1 disc herniation. She has previously received osteopathic treatments and underwent an L5-S1 epidural injection on September 30, 2024, which provided an 85% reduction in her symptoms. The effects of the injection have since diminished, with symptoms, including bilateral hip pain and pain radiating down the leg, returning. She notes that if she remains in one position for too long, she experiences stiffness followed by muscle spasms upon moving. The patient has been attending the gym less frequently to avoid exacerbating her pain. Pain Description - Onset and Timing: The patient has had chronic lower back pain for over 10 years. - Location: The pain is in her lower back. - Radiation: She reports pain radiating to her left buttock lately, though she has had bilateral radicular symptoms in the past. - The pain has also been radiating all the way down her leg, and she reports bilateral hip and knee pain. - Exacerbating Factors: Pain is exacerbated by remaining in one position for too long, which causes stiffness and subsequent spasms upon movement. - Relieving Factors: An L5-S1 epidural injection provided 85% relief for approximately 6 months. Results - Imaging: - Lumbar sacral spine MRI (September 15, 2024): Demonstrated extrusion and cranial migration of the L5-S1 disc herniation. [facility] Medical History (Updated 03/30/25 @ 12:36 by Christofer Maldonado DO) Lumbar radiculitis Lumbar disc herniation Hypersomnia Snoring Tics of organic origin POTS (postural orthostatic tachycardia syndrome) Hereditary alpha tryptasemia PTSD (post-traumatic stress disorder) Polycystic bilateral ovaries Christopher-Danlos syndrome Depression ADHD Anxiety Family History Mother HTN (hypertension) Father Mental health problem Social History Alcohol intake: current Alcohol intake frequency: holidays/special occasions only Patient Tobacco Use Status: Never used Tobacco Substance Use Type: Marijuana Current occupational status: unemployed Review of Systems Narrative Review of Systems - Musculoskeletal: Reports chronic lower back pain, bilateral hip pain which is worse on the left side recently, knee pain, and joint stiffness after prolonged static positioning, which leads to muscle spasms. - Neurological: Reports pain radiating down the leg, most recently on the left side. Physical Exam Exam Exam: Physical Exam Patient appears to be in no acute distress. Appropriately conversant oriented. She ambulates without antalgia. Neurological examination was nonfocal. Lumbar extension was slightly restricted in extension. Dural tension signs were negative. The SI provocative maneuvers were negative. Tenderness with palpation over sacroiliac sulci. Spurling maneuver was negative. Lhermitte's sign was negative. Patient demonstrated no upper motor neuron signs. Vital Signs: BMI result Body Mass Index 44.3 Assessment & Plan Assessment & Plan (1) Lumbar disc herniation: Code(s): M51.26 - Other intervertebral disc displacement, lumbar region Category: Medical (2) Lumbar radiculitis: Code(s): M54.16 - Radiculopathy, lumbar region Category: Medical Plan Pain Management - Analgesia: The patient is currently taking oxycodone 5 mg four times a day, pregabalin 100 mg twice a day, and baclofen as a muscle relaxant. - She previously experienced 85% pain reduction from an L5-S1 epidural injection, but her symptoms are returning. - Adverse Effects: The patient reports her leg went into a spasm during her last injection as the fluid was administered. - Activities of Daily Living: The patient is disabled. - She has been going to the gym less to avoid exacerbating her pain. - She had previously regained the ability to isolate certain muscles following her last injection, but has since lost that ability. - Aberrant Drug Related Behaviors: Tramadol was discontinued to avoid concurrent use with oxycodone. Plan Patient was informed and verbally consented to the use of an ambient scribe for clinic note documentation during this visit. 1. L5-S1 Disc Herniation With Radiculopathy The patient experienced significant (85%) but temporary relief from a previous L5-S1 epidural steroid injection performed approximately six months ago. As her radicular symptoms are returning, the plan is to repeat the L5-S1 epidural injection. The procedure will require prior authorization from her insurance and will be scheduled after the holidays. Discussion Notes I discussed with the patient that her symptoms are recurring after about six months of relief from her last L5-S1 epidural injection, which is a good duration of effect. I recommended repeating the L5-S1 epidural injection, and she agreed to proceed. We reviewed her experience with the last procedure, where she noted a leg spasm, which I explained can occur from the fluid injection. I offered sedation for the upcoming procedure, but she declined. I informed her that the procedure requires prior authorization from her insurance carrier and will likely be scheduled after the hols. My office staff will contact her to arrange the appointment. Patient Instructions - We will schedule you for a repeat L5-S1 epidural steroid injection to help with your returning back and leg pain. - Our office staff will call you to schedule the appointment. - This procedure must be approved by your insurance ([facility]) before we can schedule it, so it will likely be after the winters. - On the day of the procedure, we will ask you which side is bothering you more to guide the treatment. - Continue taking your current medications as prescribed, including oxycodone 5 mg four times a day, pregabalin 100 mg twice a day, and baclofen as needed for muscle spasms. Coding Level of Care Code Est Pt Level 4 (77095) Add On Problem Visit Only Diagnoses Lumbar disc herniation M51.26 Lumbar radiculitis M54.16
--- OUTSIDE RECORDS SUMMARY | 2025-03-30 09:39 | XMS_ITS | Encounter Summary ---
Author Organization [facility] Address [address] [place] [address] Phone Care Team Providers Care Residential Tech Name Role Phone Melony Pinto MD Primary Care Provider Meolny Pinto MD Unavailable [phone] Mira Isaac PRECISION INSPECTOR Unavailable [email or web address] Encounter Details Date Type Department Care Team (Late st Contact Info) Description 10/10/2021 Procedure [facility] [address] [place] [address] Social History Tobacco Use Types Packs/Day Years [...] as of this encounter Plan of Treatment Upcoming Encounters Date Type Department Care Team (Late st Contact Info) Description 02/01/2026 9:00 AM EDT Office Visit [facility] [address] [place] [address] Desi Montano CNP [address] [place] [address] [email or web address] documented as of this encounter Visit Diagnoses Not on filedocumented in this encounter Care Teams Residential Tech Relationship Specialty Start Date End Date Melony Pinto MD [address] [place] [address] [email or web address] PCP - General Family Medicine 09/27/20 Melony Pinto MD [address] [place] [address] [email or web address] Insurance Assigned Provider 09/21/21 12/20/22 Mira Isaac, [address] [address] [email or web address] Colored Leather Setter 09/02/22 09/30/22 documented as of this encounter Additional Source Comments The information contained in this document represents components of the legal health record. It is not the complete legal health record.[facility]
--- OUTSIDE RECORDS SUMMARY | 2025-03-30 09:39 | XMS_ITS | Clinical Summary ---
Author Organization [facility] Address [address] [place] [address] Care Team Providers Care Ticket Maker Name Role Phone Derrick He MD Primary Care Provider [phone] Allergies Active Allergy Reactions Criticality Noted Date Comments Allergen Zic-Jayjm-Aertm Bee Angioedema High 021 Medications dicyclomine (BENTYL) [...] mouth 3 times a day. 5 Active Junel FE 1.5/30, 28, 1.5 mg-30 mcg (21)/75 mg (7) per tablet Take 1 tablet by mouth once a day. 5 Active omeprazole (PriLOSEC) 20 mg capsule Take 20 mg by mouth once a day. 5 Active oxyCODONE IR (ROXICODONE) 5 mg tablet Take 5 mg by mouth 3 times a day. 5 Active pregabalin (LYRICA) 100 mg capsule [...] every 6 hours as needed. 5 Active ipratropium (ATROVENT) 0.03% nasal spray Administer 2 sprays into each nostril 3 times a day as needed for rhinitis. 30 mL 3 5 Active Active Problems Problem Noted Date Diagnosed Date Concussion 06/23/2016 Encounters Date Type Department Care Team Description 02/17/2025 12:30 PM EST Follow-Up [facility] [address] [place] [address] Sander Setter: Natalia Loya MD Hives (Primary Dx) from Last 3 Months Social History Tobacco Use Types Packs/Day Years Used Date Smoking Tobacco: Never Assessed Comments Unknown Sex and Gender Information Value Date Recorded Sex Assigned at Female 09/07/2024 9:04 AM EDT Legal Sex Female 7:21 PM EDT Gender Identity Female 09/06/2024 2:38 PM EDT Sexual Orientation Other 09/06/2024 2: 38 PM EDT Last Filed Vital Signs Vital Sign Reading Time Taken Comments Blood Pressure 133/84 02/17/2025 12:31 PM EST Pulse 80 02/17/2025 12:31 PM EST Temperature - - Respiratory Rate 20 02/17/2025 12:31 PM EST Oxygen Saturation 98% 02/17/2025 12:31 PM EST Inhaled Oxygen Concentration - - Weight 139.7 kg (308 lb) 02/17/2025 12:31 PM EST Height 173.3 cm (5' 8.23 ) 06/23/2016 3:54 PM ED T Body Mass Index - - Plan of Treatment Upcoming Encounters Date Type Department Care Team (Late st Contact Info) Description 02/20/2026 12:10 PM EST Follow-Up [facility] [address] [place] [phone] Sander Setter: Natalia Loya MD [address] [place] [id number] Health Maintenance Due Date Last Done Comments HIV Screening 1999 Hepatitis C Screening 1999 Pap Smear 1999 HPV Vaccines (1 - 3-dose series) 06/16/2014 Alcohol/Substance Use Screening 04/13/2024 Depression Screening and Follow-Up 04/13/2024 Social Drivers of Health Annual Screening 04/13/2024 COVID-19 Vaccine ( season) 2024 03/15/2021, 06/07/2020, 05/10/2020 DTaP,Tdap,and Td Vaccines (8 - Td or Tdap) 07/09/2031 07/08/2021, 07/28/2011, 07/02/2004, Additional history exists Hepatitis B Vaccines Completed 06/23/2000, 01/24/2000, 1999 Varicella Vaccines Completed 07/28/2011, 07/10/2003 Influenza Vaccine Completed 12/13/2024, , 03/02/2023, Additional history exists Pneumococcal Vaccine: Pediatric (0-5 Years) and At-Risk Patients (6-50 Years) Aged Out No longer eligible based on patient's age to complete this topic Insurance [facility] Care Teams Ticket Maker Relationship Specialty Start Date End Date Derrick He MD PCP - General 10/30/16
--- OUTSIDE RECORDS SUMMARY | 2025-03-30 09:39 | XMS_ITS | Encounter Summary ---
Author Organization [facility] Address [address] [place] [address] Phone Care Team Providers Care Vacuum Drier Operator Name Role Phone Melony Pinto MD Primary Care Provider Reason for Visit * Reason Comments Medication Refill Encounter Details Date Type Department Care Team (Late st Contact Info) Description 02/09/2025 Refill [facility] [address] [place] [address] Desi Montano, JAY [address] [place] [address] [email or web address] Medication Refill Social History Tobacco Use Types Packs/Day Years Used Date Smoking Tobacco: Former Cigarettes Q uit: 06/2021 Smokeless Tobacco: Never Comments:vapes currently Alcohol Use Standard Drinks/Week Comments Never 2 (1 standard drink = 0.6 oz [...] on file documented as of this encounter Progress Notes * Geraldine Caicedo - 02/09/2025 11:00 AM EDT Medication was just picked up on 12/27/2024, 90 Day supply was given documented in this encounter Plan of Treatment Upcoming Encounters Date Type Department Care Team (Late st Contact Info) Description 02/01/2026 9:00 AM EDT Office Visit [facility] [address] [place] [address] Desi Montano CNP [address] [place] [address] [email or web address] documented as of this encounter Visit Diagnoses Not on filedocumented in this encounter Care Teams Vacuum Drier Operator Relationship Specialty Start Date End Date Melony Pinto MD [address] [place] [phone] [email or web address] PCP - General Family Medicine 09/27/20 documented as of this encounter Additional Source Comments The information contained in this document represents components of the legal health record. It is not the complete legal health record.[facility]
--- OUTSIDE RECORDS SUMMARY | 2025-03-30 09:39 | XMS_ITS | Encounter Summary ---
Author Organization [facility] Address [address] [place] [address] Phone Care Team Providers Care Machining Technician Name Role Phone Melony Pinto MD Primary Care Provider Melony Pinto MD Unavailable [phone] Mira Isaac MINE PATROL Unavailable [email or web address] Encounter Details Date Type Department Care Team (Latest Contact Info) Description 03/03/[address] [facility] Phleb Rosa 10 [facility] 2nd [place] [address] Desi Montano, JAY [address] [place] [address] [email or web address] Abnormal bowel habits (Primary Dx); Abdominal pain, [...] Description 02/01/2026 9:00 AM EDT Office Visit [facility] [address] [place] [address] Desi Montano CNP [address] [place] [address] [email or web address] documented as of this encounter Results * TSH (03/03/2022 9:14 AM EST) TSH 3.10 0.27 - 4.20 uIU/mL [facility] Blood 03/03/2022 9:14 AM EST 03/03/2022 9:21 AM EST us Desi Fauziastephanie Montano CNP LAB BLOOD BKR ORDERABLES F inal Result Performing Organization Address [facility]/ZIP Co de Phone Number [address] [address] * Lipase (03/03/2022 9:14 AM EST) LIPASE 58 16 - 63 U/L [facility] Blood 03/03/2022 9:14 AM EST 03/03/2022 9:21 AM EST us Desi Fauziastephanie Montano TRACK WORKER LAB BLOOD BKR ORDERABLES F inal Result Performing Organization Address [facility]/ZIP Co de Phone Number [address] [address] * (ABNORMAL) C-Reactive Protein (03/03/2022 9:14 AM EST) C REACTIVE PROTEIN 4.9(H) 0.0 - 4.0 mg/L [facility] Blood 03/03/2022 9:14 AM EST 03/03/2022 9:21 AM EST Desi Fauziastephanie Montano [facility] LAB BLOOD BKR ORDERABLES F inal Result Performing Organization Address City/[facility]/ZIP Co de Phone Number [address] [address] * Comprehensive metabolic panel (03/03/2022 9:14 AM EST) SODIUM 138 133 - 146 mmol/L [facility] POTASSIUM 4.1 3.3 - 5.1 mmol/L [facility] CHLORIDE 102 96 - 108 mmol/L [facility] CO2 24 21 - 35 mmol/L [facility] BUN 15 6 - 19 mg/dL [facility] CREATININE 0.80 0.5 - 1.5 mg/dL [facility] GLUCOSE 98 70 - 99 mg/dL [facility] ALBUMIN 4.4 3.9 - 4.8 g/dL [facility] TOTAL PROTEIN 7.2 6.5 - 8.0 g/dL [facility] CALCIUM 9.8 8.4 - 10.3 mg/dL [facility] ALKALINE PHOSPHATASE 75 39 - 117 U/L [facility] TOTAL BILIRUBIN 0.2 0.0 - 1.2 mg/dL [facility] AST 19 0 - 37 U/L [facility] ALT 29 0 - 40 U/L [facility] GLOBULIN 2.8 1 - 4.8 g/dL [facility] EGFR 107 >59 mL/min/1.7 3m2 [facility] Comment:Estimated glomerular filtration rate calculated using the CKD-EPI refit equation. ANION GAP 16 10 - 20 mmol/L [facility] Blood 03/03/2022 9:14 AM EST 03/03/2022 9:21 AM EST us Desi Montano [facility] LAB BLOOD BKR ORDERABLES F inal Result [address] [address] * (ABNORMAL) CBC and differential (03/03/2022 9:14 AM EST) WBC 11.74(H) 4.00 - 11.00 K/uL [facility] RBC 4.51 3.72 - 5.30 M/uL [facility] HGB 13.9 11.0 - 15.2 g/dL [facility] HCT 40.0 31.6 - 44.1 % [facility] PLT 323 140 - 430 K/uL [facility] MCV 88.7 78.0 - 97.0 fL [facility] MCH 30.8 25.0 - 33.0 pg [facility] MCHC 34.8 32.0 - 36.0 g/dL [facility] RDW 12.1 11.0 - 16.0 % [facility] MPV 10.2 8.4 - 12.8 fl [facility] DIFF METHOD Auto [facility] NEUTS 58.6 43.0 - 75.0 % [facility] LYMPHS 31.8 18.2 - 47.4 % [facility] MONOS 6.9 4.00 - 11.00 % [facility] EOS 1.8 0.0 - 8.0 % [facility] BASOS 0.7 0.0 - 2.0 % [facility] Granulocytes, immature (%) 0.2 0.0 - 0.9 % [facility] ABSOLUTE NEUTS 6.89 1.80 - 7.70 K/uL [facility] ABSOLUTE LYMPHS 3.73(H) 1.00 - 3.10 K/uL [facility] ABSOLUTE MONOS 0.81(H) 0.20 - 0.80 K/uL [facility] ABSOLUTE EOS 0.21 0.00 - 0.80 K/uL [facility] ABSOLUTE BASOS 0.08 0.00 - 0.09 K/uL [facility] Granulocytes, immature 0.02 0.00 - 0.05 K/uL [facility] Blood 03/03/2022 9:14 AM EST 03/03/2022 9:21 AM EST us Desi Montano TRACK WORKER LAB BLOOD BKR ORDERABLES F inal Result [facility] [address] [place] [address] * Immunoglobulin A (03/03/2022 9:14 AM EST) IgA 157 70 - 400 mg/dL [facility] Blood 03/03/2022 9:14 AM EST 03/03/2022 9:21 AM EST us Desi Montano [facility] LAB BLOOD BKR ORDERABLES F inal Result [facility] [address] [place] [address] * Tissue transglutaminase IgA (03/03/2022 9:14 AM EST) TTG IGA ANTIBODY <1.2 <4.0 (Negative) U/mL [facility] Blood 03/03/2022 9:14 AM EST 03/03/2022 9:20 AM EST Desi Montano [facility] LAB BLOOD BKR ORDERABLES F inal Result Performing Organization Address City/[facility]/ZIP Co de Phone Number [facility] [address] [place] [address] documented in this encounter Visit Diagnoses Diagnosis Abnormal bowel habits- Primary Abdominal pain, epigastric Lower abdominal pain Abdominal pain, other specified site documented in this encounter Care Teams Machining Technician Relationship Specialty Start Date End Date Melony Pinto MD [address] [place] [address] [email or web address] PCP - General Family Medicine 09/27/20 Melony Pinto MD [address] [place] [address] [email or web address] Insurance Assigned Provider 09/21/21 12/20/22 Mira Isaac, MINE PATROL [address] [place] [address] [email or web address] PHCM Specification Writer 09/02/22 09/30/22 documented as of this encounter Additional Source Comments The information contained in this document represents components of the legal health record. It is not the complete legal health record.[facility]
--- OUTSIDE RECORDS SUMMARY | 2025-03-30 09:39 | XMS_ITS | Encounter Summary ---
Author Organization [facility] Address [address] [place] [address] Phone Care Team Providers Care Linotype Worker Name Role Phone Melony Pinto MD Primary Care Provider [phone] Melony Pinto MD Unavailable [phone] Mira Isaac SUPERVISOR STAVE CUTTING Unavailable [email or web address] Encounter Details Date Type Department Care Team (Late st Contact Info) Description 01/29/2022 Procedure Pass [facility] Endoscopy Admitting Dept Virtual Department [address] [place] [address] Social History Tobacco Use Types Packs/Day Years [...] 02/01/2026 9:00 AM EDT Office Visit [facility] [address] [place] [address] Desi Montano CNP [address] [place] [address] [email or web address] documented as of this encounter Visit Diagnoses Not on filedocumented in this encounter Care Teams Linotype Worker Relationship Specialty Start Date End Date Melony Pinto MD [address] [place] [address] [email or web address] PCP - General Family Medicine 09/27/20 Melony Pinto MD [address] [place] [address] [email or web address] Insurance Assigned Provider 09/21/21 12/20/22 Mira Isaac, SUPERVISOR STAVE CUTTING [address] [place] [address] [email or web address] PHCM Educational Resource Coordinator 09/02/22 09/30/22 documented as of this encounter Additional Source Comments The information contained in this document represents components of the legal health record. It is not the complete legal health record.[facility]
--- OUTSIDE RECORDS SUMMARY | 2025-03-30 09:39 | XMS_ITS | Clinical Summary ---
Author Organization [facility] Address [address] [place] [address] Phone Care Team Providers Care Pattern Molder Name Role Phone Melony Pinto MD Primary Care Provider Allergies Active Allergy Reactions Criticality Noted Date Comments Allergen Jxz-Akhad-Kjayi Bee Anaphylaxis High 2020 Medications escitalopram oxalate (LEXAPRO) 20 MG tablet Take 20 mg by mouth daily. Active EPINEPHrine 0.3 mg/0.3 mL auto-injector Inject 0.3 mL (0.3 mg total) into the muscle as needed for anaphylaxis. 1 Device 09/28/19 21 Active PROAIR HFA 90 mcg/actuation inhaler Inhale 2 puffs into the lungs every 4 (four) hours. 12/15/19 22 Active famotidine (PEPCID) 40 MG tablet Take 40 mg by mouth nightly at bedtime. 01/02/20 22 Active buPROPion (FORFIVO XL) 450 mg Tb24 ER 24 hr tablet Take 450 mg by mouth every morning. 08/18/19 24 Active clotrimazole-be tamethasone (LOTRISONE) cream APPLY TOPICALLY TO THE AFFECTED AND SURROUNDING AREAS TWICE DAILY IN THE MORNING AND IN THE EVENING FOR 2 WEEKS 06/04/19 24 Active cromolyn (GASTROCROM) 100 mg/5 mL solution Take 100 mg by mouth. 08/26/19 24 Active guanFACINE (INTUNIV) 1 mg Tb24 Take 2 mg by mouth nightly at bedtime. 07/30/19 24 Active guanFACINE (TENEX) 1 MG tablet Take 1 mg by mouth nightly at bedtime. 08/20/19 24 Active traMADoL (ULTRAM) 50 mg tablet Take 50 mg by mouth 2 (two) times a day. 07/16/19 24 Active pregabalin (LYRICA) 100 MG capsule Take 100 mg by mouth 2 (two) times a day. 08/26/19 24 Active levocetirizine (XYZAL) 5 MG tablet Take 5 mg by mouth every evening. 08/26/19 24 Active LORazepam (ATIVAN) 1 MG tabletIndicatio ns:Anxiety due to invasive procedure Take 1 tablet (1 mg total) by mouth once for 1 dose. Take one hour before appointment 1 tablet 08/27/19 24 Active oxyCODONE 5 MG immediate release tablet 12/09/19 24 Active JUNEL FE 1.5/30, 28, 1.5 mg-30 mcg (21)/75 mg (7) tabletIndicatio ns:Oligomenorrh ea TAKE 1 TABLET BY MOUTH DAILY 84 tablet 4 09/28/19 25 Active dextroamphetami ne-amphetamine (ADDERALL XR) 5 MG 24 hr capsule Take 5 mg by mouth every morning. Active multivitamin-mi nerals-lutein (CENTRUM SILVER) Tab Take 1 tablet by mouth daily. Active dicyclomine (BENTYL) 20 mg tabletIndicatio ns:Irritable bowel syndrome TAKE 1 TABLET BY MOUTH 2 TO 3 TIMES A DAY 90 tablet 2 02/10/20 25 Active omeprazole (PRILOSEC) 20 MG capsuleIndicati ons:Gastroesoph ageal reflux disease without esophagitis TAKE 1 CAPSULE BY MOUTH DAILY 30 TO 60 MINUTES BEFORE BREAKFAST 30 capsule 4 03/27/20 25 Active omeprazole (PRILOSEC) 20 MG capsule Take 20 mg by mouth daily. 08/26/19 24 025 Discontinued Active Problems Problem Noted Date Diagnosed Date Primary oligomenorrhea 07/02/2021 Overview (12/10/2023): PCP diagnosed with PCOS but LH/FSH normal and drawn while on OCPs. Normal testosterone. Elevated insulin. Reports having [place] [facility]. Assessment & Plan (07/02/2021 9:20 AM EDT): Will change OCP to a same daily dose pill that is 30 mcg as with her elevated transamninases and obesity, a 20 mcg pill is likely not adequate Concussion with loss of consciousness 06/23/2016 Encounters Date Type Department Care Team Description 03/27/2025 Refill [facility] [address] [place] [address] Desi Montano CNP Medication Refill 02/09/2025 Refill [facility] [address] [place] [address] Desi Montano CNP Medication Refill 02/09/2025 Refill [facility] [address] [address] Desi Montano CNP Medication Refill 02/01/2025 2:30 PM EDT Office Visit [facility] Gastroenterology [address] [address] Unknown, Unknown, Desi Resendez CNP Gastroesophageal reflux disease without esophagitis (Primary Dx); Constipation, unspecified constipation type from Last 3 Months Immunizations Immunization Administration [...] Sign Reading Time Taken Comments Blood Pressure 134/76 02/01/2025 2:00 PM EDT Pulse 94 02/01/2025 2:00 PM EDT Temperature 36 C (96.8 F) 01/29/2022 11:17 AM EDT Respiratory Rate 18 01/29/2022 11:34 AM EDT Oxygen Saturation 97% 02/01/2025 2:00 PM EDT Inhaled Oxygen Concentration - - Weight 138.3 kg (305 lb) 02/01/2025 2:00 PM EDT Height 177.8 cm (5' 10 ) 02/01/2025 2:00 PM EDT Body Mass Index 43.76 02/01/2025 2:00 PM EDT Plan of Treatment Upcoming Encounters Date Type Department Care Team (Late st Contact Info) Description 02/01/2026 9:00 AM EDT Office Visit [facility] [address] [place] [address] Desi Montano CNP [address] [place] [address] Health Maintenance Due Date Last Done Comments [...] * Pap Test (12/10/2023 12:00 AM EDT) Report [address] [address] Periodontal Assistant: Serena Kimble MD TEMPERATURE INSPECTOR Cytology Report FINAL DIAGNOSIS A. PAP SMEAR (THIN PREP) CE: SPECIMEN ADEQUACY: Satisfactory for evaluation; transformation zone absent/insufficien t. INTERPRETATION: NEGATIVE FOR INTRAEPITHELIAL LESION OR MALIGNANCY. This specimen was analyzed by the automated ThinPrep Imaging System ([employer] and the selected cerrato were reviewed by a coin teller. Electronically Signed Out By: VIKI Menchaca(ASCP) The [...] PAP SMEAR (THIN PREP) CE Patient Name: ISAÍAS WEAVER : 2000 (Age: 23) Sex: F Institution: [facility] Location: [facility] Date of Collection: 12/10/2023 Date of Reported: 12/18/2023 08:55 Results to: Jeremias Boggs MD [facility] Final Diagnosis A. PAP SMEAR (THIN PREP) CE: SPECIMEN ADEQUACY: Satisfactory for evaluation; transformation zone absent/insufficien t. INTERPRETATION: NEGATIVE FOR INTRAEPITHELIAL LESION OR MALIGNANCY. This specimen was analyzed by the automated ThinPrep Imaging System ([employer] and the selected cerrato were reviewed by a coin teller. [facility] Conversion Type (Conversion Source) 12/10/2023 12/11/2023 9:34 AM EDT us Jeremias Boggs MD CYTOLOGY ORDERABLES Edited Resul t - Final [facility] [address] [place] [address] from Last 3 Months or Most Recently Relevant to Health Maintenance Insurance MEDICARE PART A & B Member Subscriber Plan / Payer (Ef fective 2023-Present) Name:Isaías Weaver Member ID:[id number] Relation to Subscriber:Self Name:Isaías Weaver Subscriber ID:[id number] Payer ID:[id number] Group ID:Not on file Type:Medicare Address: [employer] [address] ONE CARE MEDICARE REPLACEMENT MEDICARE PART A & B ONE CARE MEDICARE REPLACEMENT [place] [address] MEDICARE PART A & B Member Subscriber Plan / Payer (Ef fective 2023-) Name:Isaías Weaver Member ID:[id number] Relation to Subscriber:Self Name:Isaías Weaver Subscriber ID:[id number] Payer ID:[id number] Group ID:Not on file Type:Medicare Address: [employer] [address] ONE CARE MEDICARE REPLACEMENT JO ANN SILVA [facility] MEDICARE PART A & B Member Subscriber Plan / Payer ( fective 2023-) Name:Isaías Weaver Member ID:[id number] Relation to Subscriber:Self Name:Isaías Weaver Subscriber ID:[id number] Payer ID:[id number] Group ID:Not on file Type:Medicare Address: [employer] [address] ONE CARE MEDICARE REPLACEMENT MEDICARE PART A & B Member Subscriber Plan / Payer (Ef fective 2023-) Name:Isaías Weaver Member ID:[id number] Relation to Subscriber:Self Name:Isaías Weaver Subscriber ID:[id number] Payer ID:[id number] Group ID:Not on file Type:Medicare Address: [employer] [address] [place] [address] CARE MEDICARE REPLACEMENT MEDICARE PART A & B Member Subscriber Plan / Payer (Ef fective 2023-) Name:Isaías Weaver Member ID:[id number] Relation to Subscriber:Self Name:Isaías Weaver Subscriber ID:[id number] Payer ID:[id number] Group ID:Not on file Type:Medicare Address: [employer] [address] [place] [phone] [place] [address] ONE CARE MEDICARE REPLACEMENT Care Teams Pattern Molder Relationship Specialty Start Date End Date Melony Pinto MD [address] [place] [phone] [email or web address] PCP - General Family Medicine 09/27/20 Additional Source Comments The information contained in this document represents components of the legal health record. It is not the complete legal health record.[facility]
--- OUTSIDE RECORDS SUMMARY | 2025-03-30 09:39 | XMS_ITS | Encounter Summary ---
Author Organization [facility] Address [address] [place] [address] Phone Care Team Providers Care Fine Craft Artist Name Role Phone Melony Pinto MD Primary Care Provider [phone] Reason for Visit * Reason Comments Medication Refill Encounter Details Date Type Department Care Team (Late st Contact Info) Description 03/27/2025 Refill [facility] [address] [place] [address] Desi Montano, JAY [address] [place] [address] [email or web address] Medication Refill Social History Tobacco Use Types [...] encounter Progress Notes * Geraldine Caicedo - 03/27/2025 10:06 AM EST Rx Care Gap Status - Instructions for Clinical Staff (prescriber discretion applies): > Mismatch review guide > N/a - No action needed Visit Info Last visit: 02/01/2025 Desi Montano CNP - Gastroenterology [facility] > Requested f/u: Return in about 1 year (around 02/01/2026). Upcoming visit: 02/01/2026 Desi Montano CNP - Gastroenterology [facility] ACTIONS TAKEN BY Geraldine Caicedo - Criteria met. Gastrointestinal Rx Protocol (H2 blockers, PPIs, stool softeners, laxatives) - omeprazole Criteria met; renew for up to 12 months. Visit in the past 24 months: Yes Last sent 12/27/2024 Last picked up 12/27/2024 documented in this encounter Plan of Treatment Upcoming Encounters Date Type Department Care Team (Late st Contact Info) Description 02/01/2026 9:00 AM EDT Office Visit [facility] [address] [place] [address] Desi Montano CNP [address] [place] [address] [email or web address] documented as of this encounter Visit Diagnoses Diagnosis Gastroesophageal reflux disease without esophagitis- Primary Esophageal reflux documented in this encounter Care Teams Fine Craft Artist Relationship Specialty Start Date End Date Melony Pinto MD [address] [place] [phone] [email or web address] PCP - General Family Medicine 09/27/20 documented as of this encounter Additional Source Comments The information contained in this document represents components of the legal health record. It is not the complete legal health record.[facility]
--- OUTSIDE RECORDS SUMMARY | 2025-03-30 09:39 | XMS_ITS | Encounter Summary ---
Author Organization [facility] Address [address] [place] [address] Phone Care Team Providers Care Php Mysql Web Developer Name Role Phone Melony Pinto MD Primary Care Provider [phone] Melony Pinto MD Unavailable [phone] Mira Isaac [facility] Unavailable [email or web address] Reason for Referral * Outpatient Procedure - Closed Specialty Diagnoses / Procedures Referred By Hilario t Referred To Contact Diagnoses Christophre-Danlos syndrome, benign hypermobile form Procedures Adult Echo TTE Eboni May DO Phone: tel: fax: [email or web address] Referral ID Status Reason Start Date Expiration Date Visits Re quested Visits Authorized [id number] Closed 12/05/2021 12/05/2022 1 1 Encounter Details Date Type Department Care Team (Latest Contact Info) Description 10/10/2021 Transcribe Orders Virtual Department [address] [place] [address] Eboin May DO [address] [place], [place] [phone] [email or web address] Christopher-Danlos syndrome, benign hypermobile form (Primary [...] Description 02/01/2026 9:00 AM EDT Office Visit [facility] [address] [place] [phone] Desi Montano CNP [address] [place] [address] [email or web address] documented as of this encounter Results * [...] Comparison Findings No prior studies for comparison. 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, benign hypermobile form Christopher-Danlos syndrome documented in this encounter Care Teams Php Mysql Web Developer Relationship Specialty Start Date End Date Melony Pinto MD [address] [place] [phone] [email or web address] PCP - General Family Medicine 09/27/20 Melony Pinto MD [address] [place] [address] [email or web address] Insurance Assigned Provider 09/21/21 12/20/22 Mira Isaac, MARINE PAINTER [address] [place] [address] [email or web address] PHCM Log Yard Manager 09/02/22 09/30/22 documented as of this encounter Additional Source Comments The information contained in this document represents components of the legal health record. It is not the complete legal health record.[facility]
== END 2025-03-30 09:20 | disposition home or self-care (01) ==
LOC: HO.HPHYS 08:55
PROVIDERS: PCP Family Medicine; Visit Provider Physical Medicine & Rehabilitation
DX: M51.26 Other intervertebral disc displacement, lumbar region (principal); M54.16 Radiculopathy, lumbar region
CPT/HCPCS: 99214; G2211

== ENCOUNTER → 2025-03-30 08:55 | Outpatient (BNVA) | payer OTHER, SELFPAY | PROVIDERS: PCP Family Medicine; Visit Provider Physical Medicine & Rehabilitation | DX: M51.16 Intervertebral disc disorders with radiculopathy, lumbar region (principal); Z79.891 Long term (current) use of opiate analgesic | CPT/HCPCS: 99212 ==